=== PATIENT | female | born 1965 | race African-American/Black ===

== ENCOUNTER 2016-11-30 21:34 | Emergency (ER) | payer SELFPAY ==
[~2016-11-30] VITALS: Ht 177.8 cm; Wt 63.5 kg
--- NOTE | 2016-11-30 22:26 | NUR ---
Dr. Munoz at bedside for eval.
[2016-11-30 22:35] VITALS: BP 115/80
--- NOTE | 2016-11-30 22:35 | NUR ---
Patient discharged to home in stable conditon. Written and verbal after care instructions given. Patient verbalizes understanding of instructions. patient left in stable gait.
== END 2016-11-30 22:36 | disposition home or self-care (01) ==
LOC: ER 21:35
DX: J20.9 Acute bronchitis, unspecified (principal)
CPT/HCPCS: A4663